=== PATIENT | female | born 2000 | race Caucasian/White ===

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

== ENCOUNTER 2020-01-24 11:28 | Emergency (ER) | payer BC ==
[2020-01-24 11:44] VITALS: BP 102/58
--- NOTE | 2020-01-24 12:16 | UC ---
Eye Complaint HPI - HPI Summary HPI Summary: LEFT eye itchy yesterday; this morning "crusted shut" and still itchy. Used otc eye drops yesterday w/ not much relief. - History of Current Complaint Chief Complaint: UCEye Stated Complaint: LEFT EYE COMPLAINT Time Seen by Provider: 01/24/20 12:12 Hx Obtained From: Patient Hx Last Menstrual Period: 07/13/19 ?: No Onset/Duration: Sudden Onset, Lasting Days Timing: Constant Severity Initially: Mild Severity Currently: Mild Pain Intensity: 0 Location of Injury: Conjunctiva, Sclera Associated Signs And Symptoms: Positive: Drainage (Purulent) - Allergies/Home Medications Allergies/Adverse Reactions: Allergies Allergy/AdvReac Type Severity Reaction Status Date / Time amoxicillin Allergy Hives Verified 01/24/20 11:41 Home Medications: Home Medications Drospirenone/Estradiol [Angeliq 0.25 mg-0.5 mg Tablet] 1 tab QAM 08/01/19 [ History Confirmed 01/24/20] Erythromycin OPHTH.OINT* [Ilotycin OPHTH.OINT*] 1 applic LEFT EYE TID #1 tube [Rx] PMH/Surg Hx/FS Hx/Imm Hx Previously Healthy: Yes - Surgical History Surgical History: None - Family History Known Family History: Negative: Hypertension - Social History Alcohol Use: None Substance Use Type: None Smoking Status (MU): Never Smoked Tobacco Review of Systems All Other Systems Reviewed And Are Negative: Yes Eyes: Positive: Drainage, Eye Redness Is Patient Immunocompromised?: No Physical Exam Triage Information Reviewed: Yes Appearance: Well-Appearing, Well-Nourished, Pain Distress Vital Signs: Initial Vital Signs Temp 97 F 01/24/20 11:41 Pulse 60 01/24/20 11:41 Resp 16 01/24/20 11:41 BP 102/58 01/24/20 11:41 Pulse Ox 99 01/24/20 11:41 Vital Signs Reviewed: Yes Eyes: Positive: Conjunctiva Inflamed, Discharge Dental Exam: Normal Neck exam: Normal Respiratory Exam: Normal Cardiovascular Exam: Normal Abdominal Exam: Normal Bowel Sounds: Positive: Present Musculoskeletal Exam: Normal Neurological Exam: Normal Psychological Exam: Normal Psychological: Negative: Normal Response To Family Skin Exam: Normal Eye Complaint Course/Dx - Course Course Of Treatment: hx obtained, exam performed ,meds reviewed, treated for conjucntivitis - Differential Dx/Diagnosis Provider Diagnosis: Conjunctivitis, left eye Discharge ED - Sign-Out/Discharge Documenting (check all that apply): Patient Departure All imaging exams completed and their final reports reviewed: No Studies - Discharge Plan Condition: Stable Disposition: HOME Prescriptions: Erythromycin OPHTH.OINT* [Ilotycin OPHTH.OINT*] 1 applic LEFT EYE TID #1 tube Patient Education Materials: Conjunctivitis (ED) Referrals: No Primary Care Phys,NOPCP [Primary Care Provider] - Additional Instructions: 1. use the cream as prescribed 2. Wash hands after touching the eye 3. Wash pillow cases 4. Do not wear contacts until clear, follow up as needed. - Billing Disposition and Condition Condition: STABLE Disposition: Home - Attestation Statements Provider Attestation: This patient was not seen by me. I was available for consult. Chart reviewed. MARCELA
== END 2020-01-24 12:26 | disposition home or self-care (01) ==
LOC: UCCORT 11:28
DX: H10.9 Unspecified conjunctivitis (principal); Z88.0 Allergy status to penicillin
CPT/HCPCS: 99212; G0463